=== PATIENT | female | born 1995 | race Two or more races ===

== ENCOUNTER 2018-11-24 15:22 | Inpatient (IN) | payer BC ==
[~2018-11-24] VITALS: Ht 157.5 cm; Wt 59.4 kg
[2018-11-24 16:16] LABS: APPEARANCE,URINE Slightly Cloudy (CLEAR); BILIRUBIN,URINE Negative (NEGATIVE); BLOOD, URINE Negative Ery/uL (NEGATIVE); COLOR,URINE Yellow (YELLOW); KETONES,URINE Trace (NEGATIVE); LEUKOCYTE ESTERASE ,URINE Negative (NEGATIVE); NITRITE, URINE Negative (NEGATIVE); PROTEIN,URINE 100 mg/dl (NEGATIVE); UGLUCOSE Negative (NEGATIVE); UROBILINOGEN,URINE 0.2 EU/dL (0.2)
[2018-11-24] MEDS ORDERED: HYDROCODONE/APAP 5/325MG 1 EACH TABLET PO ONE (16:30)
[2018-11-24] MEDS ORDERED: IV NS 0.9% 1,000 ML BAG IV ONE (16:30)
[2018-11-24] MEDS ORDERED: HYDROCODONE/APAP 5/325MG 1 EACH TABLET ONE (16:37)
[2018-11-24 16:43] LABS: BASOPHILS # (AUTO) 0.1 /CMM (0.0-0.2); BASOPHILS % (AUTO) 0.3 % (0.0-2.0); HEMATOCRIT 41 % (33-45); HEMOGLOBIN 13.4 g/dL (11.5-14.8); LYMPHOCYTES % (AUTO) 4.3 % (20.0-44.0); MEAN CORPUSCULAR HGB CONC 33 g/dl (31.0-36.0); MEAN CORPUSCULAR VOLUME 85 fL (82-100); MONOCYTES # (AUTO) 1.1 /CMM (0.1-1.30); MONOCYTES % (AUTO) 4.9 % (2.0-12.0); NEUTROPHILS # (AUTO) 21.2 /CMM (1.8-8.9); NEUTROPHILS % (AUTO) 90.5 % (43.0-81.0); PLATELET COUNT (AUTO) 228 /CMM (150-450); RED BLOOD CELL COUNT(AUTO) 4.76 MIL/uL (4.0-5.2); WHITE BLOOD COUNT (AUTO) 23.4 K/uL (4.3-11.0)
--- NOTE | 2018-11-24 16:50 | NUR ---
TEXTED DR. FREGOSO FOR MRI APPROVAL.
[2018-11-24 16:51] LABS: CALCIUM, SERUM 8.9 mg/dL (8.5-10.1); CARBON DIOXIDE 24 mmol/L (21-32); CHLORIDE 100 mmol/L (98-107); CREATININE 0.8 mg/dL (0.6-1.3); GLUCOSE 103 mg/dL (74-106); POTASSIUM 3.5 mmol/L (3.5-5.1); SODIUM SERUM 134 mmol/L (136-145); UREA NITROGEN, BLOOD 17 mg/dL (7-18)
[2018-11-24 16:58] LABS: ALANINE AMINOTRANSFERASE 36 U/L (12-78); ALBUMIN 4.4 g/dL (3.4-5.0); ALKALINE PHOSPHATASE 70 U/L (46-116); ASPARTATE AMINOTRANSFERASE 17 U/L (15-37); BILIRUBIN,DIRECT 0.1 mg/dL (0.0-0.2); BILIRUBIN,TOTAL 0.5 mg/dL (0.2-1.0); TOTAL PROTEIN, SERUM 8.6 g/dL (6.4-8.2)
--- NOTE | 2018-11-24 17:15 | NUR ---
PROJECT TECHNICIAN AT BS., PT TO MRI ROOM
[2018-11-24] MEDS ORDERED: IBUPROFEN 600 MG TABLET PO ONE ×2 (18:24→18:30)
[2018-11-24] MEDS ORDERED: MORPHINE SULFATE INJ 2 MG/ML DISP.SYRIN ONE (18:54)
[2018-11-24] MEDS ORDERED: MORPHINE SULFATE INJ 2 MG/ML DISP.SYRIN IV ONE (20:00)
--- NOTE | 2018-11-24 20:27 | NUR ---
ADMIT TO [facility] 110X APPENDICITIS ACCEPTING JENA GUDINO
[2018-11-24] MEDS ORDERED: PIPERACILLIN /TAZOBACTAM 3.375 G VIAL IV ONE (20:30)
[2018-11-24] MEDS ORDERED: PIPERACILLIN /TAZOBACTAM 3.375 G in IV D5W 50 ML IV ONE (20:30)
[2018-11-24] MEDS ORDERED: IV NS 0.9% 1,000 ML IV PRN (20:33)
--- NOTE | 2018-11-24 20:49 | NUR ---
REPORT GIVEN TO AFIA JAMES FOR DREW; PT WILL BE TRANSPORTED TO 1ST FLOOR VIA [facility]
[2018-11-24] MEDS ORDERED: MAGNESIUM HYDROXIDE 30 ML UDC PO PRN (21:00)
[2018-11-24] MEDS ORDERED: ONDANSETRON HCL/PF 4 MG/2 ML VIAL IVP PRN (21:00)
[2018-11-24] MEDS ORDERED: MAG HYDROX/AL HYDROX/SIMETH 30 ML UDC PO PRN (21:00)
[2018-11-24] MEDS ORDERED: HYDROCODONE/APAP 5/325MG 1 EACH TABLET PO PRN (21:00)
[2018-11-24] MEDS ORDERED: Z GUARD REMEDY 2 OZ OINT TP PRN (21:00)
[2018-11-24 21:41] VITALS: BP 119/81
[2018-11-24] MEDS: MORPHINE SULFATE INJ 2 MG/ML DISP.SYRIN IV PRN (21:50)
[2018-11-24] MEDS: ACETAMINOPHEN 325 MG TABLET PO PRN (22:52)
[2018-11-25] VITALS: BP 117/69
[2018-11-25] MEDS ORDERED: PIPERACILLIN /TAZOBACTAM 3.375 G in IV D5W 50 ML IV SCH ×2
[2018-11-25] MEDS: PIPERACILLIN /TAZOBACTAM 3.375 G in IV D5W 100 ML IV SCH ×3 (01:26→12:34)
[2018-11-25 04:00] VITALS: BP 106/57
[2018-11-25] MEDS: MORPHINE SULFATE INJ 2 MG/ML DISP.SYRIN IV PRN ×2 (06:29→08:45)
[2018-11-25 06:32] LABS: BASOPHILS % (AUTO) 0.2 % (0.0-2.0); EOSINOPHILS % (AUTO) 0.1 % (0.0-6.0); HEMATOCRIT 37 % (33-45); HEMOGLOBIN 12.5 g/dL (11.5-14.8); LYMPHOCYTES # (AUTO) 1.2 /CMM (0.8-4.8); LYMPHOCYTES % (AUTO) 9.3 % (20.0-44.0); MEAN CORPUSCULAR HGB CONC 34 g/dl (31.0-36.0); MEAN CORPUSCULAR VOLUME 85 fL (82-100); MONOCYTES # (AUTO) 0.6 /CMM (0.1-1.30); MONOCYTES % (AUTO) 4.6 % (2.0-12.0); NEUTROPHILS # (AUTO) 10.7 /CMM (1.8-8.9); NEUTROPHILS % (AUTO) 85.8 % (43.0-81.0); PLATELET COUNT (AUTO) 194 /CMM (150-450); RED BLOOD CELL COUNT(AUTO) 4.39 MIL/uL (4.0-5.2); WHITE BLOOD COUNT (AUTO) 12.5 K/uL (4.3-11.0)
[2018-11-25 06:41] LABS: CALCIUM, SERUM 8.6 mg/dL (8.5-10.1); CREATININE 0.7 mg/dL (0.6-1.3); MAGNESIUM 2.1 mg/dL (1.8-2.4); PHOSPHORUS 3.6 mg/dL (2.5-4.9); POTASSIUM 3.7 mmol/L (3.5-5.1)
[2018-11-25 06:49] LABS: THYROID STIMULATING HORMONE 0.853 uIU/mL (0.358-3.74)
--- NOTE | 2018-11-25 07:29 | NUR ---
INITIAL: PT ALERT WITH ORIENTATION X 4 CONSENT SIGNED FOR POSSIBLE APPENDECTOMY. PT NPO SINCE MID NIGHT ON ROOM AIR LAC INTACT WITHOUT REDNESS OR SWELLING RUNNING NS AT 75 ML/HR. WILL CONTINUE TO MONITOR
[2018-11-25 08:00] VITALS: BP 111/76
[2018-11-25] MEDS ORDERED: MIDAZOLAM HCL 2 MG/2ML VIAL ONE (09:40)
[2018-11-25] MEDS ORDERED: FENTANYL PF 100MCG/2ML AMPUL ONE ×3 (09:40→11:53)
--- NOTE | 2018-11-25 09:43 | NUR ---
PT LEFT TO OR SENIOR SOFTWARE DEVELOPMENT ENGINEER CONSULTED URINE QUAL NEGATIVE EKG IN CHART.
[2018-11-25] MEDS ORDERED: ROCURONIUM BROMIDE 50 MG/5 ML ONE (10:00)
[2018-11-25] MEDS ORDERED: SUCCINYLCHOLINE CHLORIDE 20 MG/ML VIAL ONE (10:32)
[2018-11-25] MEDS ORDERED: BUPIVACAINE 0.5 % PF 150 MG/30 ML VIAL ONE (10:53)
[2018-11-25] MEDS ORDERED: HYDROMORPHONE 1 MG/1 ML DISP.SYRIN ONE ×2 (11:30→11:40)
[2018-11-25 12:00] VITALS: BP 141/91
[2018-11-25] MEDS ORDERED: MORPHINE SULFATE INJ 2 MG/ML DISP.SYRIN IV PRN (12:00)
[2018-11-25] MEDS ORDERED: ONDANSETRON HCL/PF 4 MG/2 ML VIAL IVP PRN (12:00)
[2018-11-25] MEDS: oxyCODONE/APAP (5/325 MG) 1 UDTAB TABLET PO PRN ×2 (12:34→19:42)
--- NOTE | 2018-11-25 13:40 | NUR ---
SCHOOL LIBRARY MEDIA PROGRAM DIRECTOR NOTES PATIENT GIVEN 2 MG MORPHINE SULFATE IV FOR PAIN 05/18 LOW ABDOMEN. PT S/P LAP APPY BY DR. BRENNAN TODAY. PERCOCET 5/325 GIVEN BUT NOT EFFECTIVE. PATIENT SEEN BY DR. WASHINGTON AT BEDSIDE. DR. WASHINGTON ABLE TO SPEAK WITH DR. BRENNAN.
--- NOTE | 2018-11-25 13:55 | NUR ---
CHARGE NOTE PER DR. WASHINGTON IF PAIN IS NOT RELIEVED, MAY INCREASE MORPHINE SULFATE TO 4 MG EVERY 4 HOURS PRN IF 2 MG IS NOT EFFECTIVE. PER DR. ANU VANEGAS.
[2018-11-25 15:41] LABS: BASOPHILS % (AUTO) 0.2 % (0.0-2.0); HEMATOCRIT 35 % (33-45); HEMOGLOBIN 11.6 g/dL (11.5-14.8); LYMPHOCYTES % (AUTO) 8.8 % (20.0-44.0); MEAN CORPUSCULAR HGB CONC 33 g/dl (31.0-36.0); MEAN CORPUSCULAR VOLUME 85 fL (82-100); MONOCYTES # (AUTO) 0.5 /CMM (0.1-1.30); MONOCYTES % (AUTO) 3.8 % (2.0-12.0); NEUTROPHILS # (AUTO) 10.4 /CMM (1.8-8.9); NEUTROPHILS % (AUTO) 87.2 % (43.0-81.0); PLATELET COUNT (AUTO) 250 /CMM (150-450); RED BLOOD CELL COUNT(AUTO) 4.15 MIL/uL (4.0-5.2); WHITE BLOOD COUNT (AUTO) 11.9 K/uL (4.3-11.0)
[2018-11-25 16:00] VITALS: BP_SYST 128; BP_SYST 136; BP_DIAS 68; BP_DIAS 79
[2018-11-25] MEDS ORDERED: MORPHINE SULFATE INJ 4 MG/ML DISP.SYRIN IM SCH (16:00)
[2018-11-25] MEDS: MORPHINE SULFATE INJ 4 MG/ML DISP.SYRIN IV PRN ×2 (16:40→21:50)
[2018-11-25] MEDS: ACETAMINOPHEN 325 MG TABLET PO PRN (17:00)
[2018-11-25] MEDS: ANCEF 1 GM/50 ML D5W IV SCH ×2 (17:03)
[2018-11-25] MEDS ORDERED: GADODIAMIDE 5 MMOL/10 ML VIAL IJ ONE (17:14)
--- NOTE | 2018-11-25 18:44 | NUR ---
CLOSING: PT ALERT WITH ORIENTATION X 4 S/P APPENDECTOMY. PT ON ADVANCED TOLERATED DIET CURRENTLY PUREE. ON ROOM AIR 20G LAC INTACT WITHOUT REDNESS OR SWELLING WILL ENDORSE CARE TO PM SHIFT RN
--- NOTE | 2018-11-25 19:10 | NUR ---
TELE/RN INITIAL NOTES RECEIVED PT IN BED, A/OX4. SR ON TELE. ON ROOM AIR. NO SOB NOTED. S/P LAP APPENDECTOMY. SURGICAL DRESSING C/D/I. NO SIGNS OF BLEEDING NOTED. C/O PAIN ON THE SURGICAL SITE WITH PAIN SCALE OF 10/10. WILL ADMINISTER PAIN MEDS ORDERED. WITH ONGOING IVF NS AT 75 ML/HR INFUSING WELL ON LEFT AC G20 IV, C/D/I. SAFETY MEASURES IN PLACED. CALL LIGHT WITHIN EASY REACH. WILL CONT TO MONITOR
[2018-11-25 20:00] VITALS: BP 114/72
--- NOTE | 2018-11-25 22:50 | NUR ---
Met with patient states she is currently on substance abuse rehab/therapy at [facility] [address], [place] [address] tel: [phone]. Patient is ambulatory and independent with adl's. She want to return the the formerly [facility] when discharge. overnight houseperson is the host/hostess Haylee [phone].Might need assistance with transportation. Addendum: 11/25/[address] GARCÍA RN Amended: Links added.
[2018-11-26] VITALS: BP 118/70
[2018-11-26] MEDS: ANCEF 1 GM/50 ML D5W IV SCH ×6 (02:30→17:15)
[2018-11-26] MEDS: MORPHINE SULFATE INJ 4 MG/ML DISP.SYRIN IV PRN ×4 (02:34→18:27)
[2018-11-26 04:00] VITALS: BP 128/85
[2018-11-26 06:12] LABS: BASOPHILS % (AUTO) 0.3 % (0.0-2.0); EOSINOPHILS % (AUTO) 0.4 % (0.0-6.0); HEMATOCRIT 35 % (33-45); HEMOGLOBIN 11.5 g/dL (11.5-14.8); LYMPHOCYTES # (AUTO) 2.2 /CMM (0.8-4.8); LYMPHOCYTES % (AUTO) 23.5 % (20.0-44.0); MEAN CORPUSCULAR HGB CONC 33 g/dl (31.0-36.0); MEAN CORPUSCULAR VOLUME 85 fL (82-100); MONOCYTES # (AUTO) 0.6 /CMM (0.1-1.30); MONOCYTES % (AUTO) 6.8 % (2.0-12.0); NEUTROPHILS # (AUTO) 6.4 /CMM (1.8-8.9); PLATELET COUNT (AUTO) 194 /CMM (150-450); RED BLOOD CELL COUNT(AUTO) 4.11 MIL/uL (4.0-5.2); WHITE BLOOD COUNT (AUTO) 9.2 K/uL (4.3-11.0)
[2018-11-26 06:23] LABS: CALCIUM, SERUM 8.5 mg/dL (8.5-10.1); CREATININE 0.6 mg/dL (0.6-1.3); PHOSPHORUS 2.6 mg/dL (2.5-4.9); POTASSIUM 3.7 mmol/L (3.5-5.1)
--- NOTE | 2018-11-26 07:02 | NUR ---
RN NOTES PT IN STABLE CONDITION. NO ACUTE CHANGES THROUGHOUT SHIFT. ALL NEEDS ANTICIPATED. SAFETY MEASURES OBSERVED AT ALL TIMES. ENDORSED TO AM SHIFT RN FOR DREW
--- NOTE | 2018-11-26 07:25 | NUR ---
SLEEVE TURNER OPENING NOTES RECEIVED REPORT FROM VELVET CUTTER RN. PT IS ASLEEP IN BED. NO OBVIOUS SIGNS OF SOB OR PAIN NOTED AT PRESENT TIME. BED IS LOCKED AND IN LOWEST POSITION. WILL CONTINUE TO MONITOR.
[2018-11-26 08:00] VITALS: BP 123/74
--- NOTE | 2018-11-26 13:14 | NUR ---
MICRO CALLED TO CONFIRM THAT PT IS POSITIVE MRSA OF NARES. HOSPITALIST FELIX WAS NOTIFIED AT 1315.
[2018-11-26 16:00] VITALS: BP 117/74
[2018-11-26] MEDS: ACETAMINOPHEN 325 MG TABLET PO PRN (16:31)
--- NOTE | 2018-11-26 18:40 | NUR ---
D/C NOTES PT WAS GIVEN EXITCARE PACKET AND TAUGHT BACK EDUCATIONAL MATERIAL. LAST SET OF VITALS TAKEN. PT IS STABLE. PT'S BELONGINGS GIVEN BACK TO PT AND THE BELONGING SHEET WAS SIGNED BY THE PT. IV WAS REMOVED AND ID BAND WILL BE REMOVED UPON PT'S RIDE ARRIVING. [facility] [place]
== END 2018-11-26 19:10 | disposition other institution (70) | DRG 341 ==
LOC: ER 15:25 → MEDSG1 20:41 → TELE1 21:12 → MEDSG1 11-26 09:02
PROVIDERS: ADMIT Nurse Practitioner Acute Care; ATTEND Student in an Organized Health Care Education/Training Program
PROC: 0DTJ4ZZ Resection of Appendix, Percutaneous Endoscopic Approach (ICD-10-PCS; principal; 2018-11-25)
DX: K35.30 Acute appendicitis with localized peritonitis, without perforation or gangrene (principal); A41.9 Sepsis, unspecified organism; E87.1 Hypo-osmolality and hyponatremia; F19.10 Other psychoactive substance abuse, uncomplicated; D72.829 Elevated white blood cell count, unspecified; E86.1 Hypovolemia; F17.210 Nicotine dependence, cigarettes, uncomplicated; J45.909 Unspecified asthma, uncomplicated
CPT/HCPCS: 36415; 72158-TC; 80048-TC; 80061-TC; 80076-TC; 81000-TC; 83605-TC; 83735-TC; 84100-TC; 84443-TC; 84484-TC; 84703-TC; 85025-TC; 85730-TC; 86850-TC; 87040-TC; 87081-TC; 87086-TC; 87400; 88304-TC; 93307-TC; A9579; G0378; J0330; J0690; J1170; J2250; J2270; J2405; J2543; J2704; J3010; J3490; J7030; J7060